=== PATIENT | male | born 1970 | race Caucasian/White ===

== ENCOUNTER 2025-09-15 17:34 | Emergency (ER) | payer SELFPAY ==
[2025-09-15] VITALS (8 sets, daily range): BP systolic 121–168; BP diastolic 70–84; PULSE 76–92; RESP 14–22; TEMP 36.8; O2SAT 94–100; BMI 29.4
--- NOTE | 2025-09-15 17:41 | CT_ITS ---
PROCEDURE: CTA HEAD AND NECK W/ CONTRAST 09/15/2025 REASON FOR EXAM: SYNCOPE, FALL TECHNIQUE: Procedure Code: CTCTA.HDNCK Modality: CT Procedure: CTA HEAD AND NECK W/ CONTRAST Multiplanar Sagittal and Coronal images were obtained. CONTRAST: Isovue 370 VOLUME: 100 mL One or more dose reduction techniques were used (e.g., Automated exposure control, adjustment of the mA and/or kV according to patient size, use of iterative reconstruction technique). RADIATION DOSE SUMMARY: CTDlvol: 23.5 mGy DLP: 640 mGycm COMPARISON: CT scan of the head on 09/15/2025. FINDINGS: Normal bilateral petrous carotid arteries. Calcified atheromatous plaques with mild multifocal stenosis of the right cavernous carotid artery with a normal supraclinoid bifurcation. Calcified atheromatous plaques with mild multifocal stenosis of the left cavernous carotid artery with a normal supraclinoid bifurcation. Normal right A1 segments of the anterior cerebral artery. Normal left A1 segments of the anterior cerebral artery. Normal intact anterior communicating artery (ACOM). Normal bilateral A2 segments of the anterior cerebral arteries. Normal right M1 and M2 segments of the middle cerebral arteries, with a normal M1 bifurcation. Normal left M1 and M2 segments of the middle cerebral arteries, with a normal M1 bifurcation. Normal right posterior communicating artery (PCOM). Normal left posterior communicating artery (PCOM). Normal bilateral vertebral arteries. Normal basilar artery with a normal basilar bifurcation. The visualized bilateral superior cerebellar (SCA) arteries are normal. Normal bilateral P1, P2 and visualized P3 segments of the posterior cerebral arteries. There is no demonstrated aneurysm of the [place] of [place]. There is no major vessel occlusion or hemodynamically significant stenosis. There is no demonstrated abnormality of the visualized brain. Technique: Axial CT angiographic images of the neck. Reformatted coronal and sagittal images. 3D, MIP images. Reconstructed images were reviewed on a different workstation by radiologist. RIGHT CAROTID ARTERIES: Normal right common carotid artery (CCA). 70% stenosis of the right common carotid bulb. 70% stenosis of the origin of the right internal carotid (ICA) artery without a hemodynamically significant stenosis. Normal remaining visualized cervical portion of the right internal carotid artery. Normal origin of the right external carotid artery (ECA). LEFT CAROTID ARTERIES: Normal left common carotid artery (CCA). Normal left common carotid bulb. 20% stenosis of the origin of the left internal carotid (ICA) artery without a hemodynamically significant stenosis. 20% stenosis of the visualized cervical portion of the left internal carotid artery. Normal origin of the left external carotid artery (ECA). VERTEBRAL ARTERIES: Diminutive left vertebral artery, chronic finding. Normal remaining bilateral vertebral artery without a hemodynamically significant stenosis. CT/CTA Head AND Neck W/ Contrast IMPRESSION: Atherosclerosis without high-grade stenosis of the cveeso-ok-Rhgehu or its bran ches. 70% stenosis of the origin of the right internal carotid artery. 20% stenosis of the origin of the left internal carotid artery. Reading Location[facility]
--- NOTE | 2025-09-15 17:41 | CT_ITS ---
PROCEDURE: BRAIN/HEAD WITHOUT CONTRAST 09/15/2025 REASON FOR EXAM: FALL OUT OF TRUCK, SYNCOPE? TECHNIQUE: Procedure Code: CTBR Modality: CT Procedure: BRAIN/HEAD WITHOUT CONTRAST Coronal and Sagittal reconstruction series were provided. One or more dose reduction techniques were used (e.g., Automated exposure control, adjustment of the mA and/or kV according to patient size, use of iterative reconstruction technique. COMPARISON: None available. FINDINGS: There is no extra-axial or intra-axial intracranial hemorrhage. No mass effect or midline shift is seen. The ventricles, sulci, and cisterns are normal in size and shape for the patient's age. There is normal yanes-white matter differentiation. The posterior fossa is grossly unremarkable. The skull is unremarkable. Visualized paranasal sinuses are clear. The mastoid air cells show normal translucency. CT/Brain/Head without Contrast IMPRESSION: No intracranial hemorrhage. No mass effect or midline shift. Reading Location[facility]
--- NOTE | 2025-09-15 17:41 | CT_ITS ---
PROCEDURE: CTA CHST, ABD, PEL W AND/OR WO 09/15/2025 REASON FOR EXAM: ABD PAIN, SYNCOPE TECHNIQUE: Chest, abdomen and pelvis CT with intravenous contrast. Coronal and Sagittal reconstruction series were provided. One or more dose reduction techniques were used (e.g., Automated exposure control, adjustment of the mA and/or kV according to patient size, use of iterative reconstruction technique. PATIENT PREPARATION: Per protocol ORAL CONTRAST TYPE: None. AMOUNT: mL CONTRAST: Not reported by technologist RADIATION DOSE SUMMARY: CTDlvol: 19.6 mGy DLP: 2095 mGycm COMPARISON: None FINDINGS: CT CHEST: Thyroid: Enlarged and heterogeneous with subcentimeter hypodense nodules. Lymph nodes: Unremarkable Mediastinum: Trace soft tissue density in the anterior mediastinum. No cardiomegaly or significant coronary calcification. Motions limits evaluation of the thoracic aorta, without evidence of extravasation. Lungs and Airways: Central airways are clear. Motion slightly limits evaluation. Bibasilar atelectasis. Calcified granuloma in the left lower lobe. Pleura: No effusion or pneumothorax. Bones: No displaced rib fracture. Degenerative changes of the thoracic spine. CT ABDOMEN/PELVIS: Liver: Enlarged and hypoattenuating. Gallbladder: Unremarkable Spleen: Mildly enlarged measuring 14.1 cm craniocaudally Pancreas: Normal size without evidence of mass surrounding inflammation or ductal dilation. Adrenals: Unremarkable Kidneys: No hydronephrosis or hydroureter. No stone. Bladder: Prominent distention Reproductive Organs: Unremarkable Bowel: Small hiatal hernia. No obstruction or inflammation. Mildly prominent rectal stool burden. Appendix: Measures 8 mm in diameter, without periappendiceal inflammatory stranding or calcified appendicolith. Lymph nodes: Unremarkable. Vasculature: Trace aortic atherosclerotic calcifications are noted. Peritoneum / Retroperitoneum: Unremarkable Bones: Degenerative changes of the spine. Sclerotic lesion in the right iliac bone, likely a bone island. Soft tissues: Fat containing umbilical hernia CT/CTA Chst, Abd, Pel W and/or WO IMPRESSION: 1. Trace soft tissue density in the anterior mediastinum is favored to represe nt residual thymic tissue in the absence of an evident aortic injury, though venous mediastinal hemorrhage could appear simila r if trauma was significant. 2. No acute traumatic abnormality in the abdomen or pelvis. 3. Mildly dilated appendix measuring 8 mm, without inflammatory stranding. Co rrelate for clinical evidence of early acute appendicitis. 4. Prominent distention of the urinary bladder, consider catheterization if pa tient is unable to void. 5. Hepatic steatosis and hepatosplenomegaly. 6. Enlarged heterogeneous multinodular thyroid. Consider nonemergent thyroid ultrasound if not previously performed. Reading Location: [id number]
--- NOTE | 2025-09-15 17:43 | EKG12_ITS ---
Test Reason : SYNCOPE Blood Pressure : */* mmHG Vent. Rate : 87 BPM Atrial Rate : 87 BPM P-R Int : 200 ms QRS Dur : 98 ms QT Int : 360 ms P-R-T Axes : 49 37 57 degrees QTcB Int : 433 ms Normal sinus rhythm Normal ECG Confirmed by ELISE ASTORGA, FAN ([id number]), research editor ESTIVEN SANTANA ([id number]) on 09/18/2025 8:21:30 AM Referred By: Confirmed By: FAN OLIVARES MD
[2025-09-15 18:03] LABS: Hematocrit 52.1 % (40-54); Hemoglobin 17.9 g/dL (13.0-16.5); Immature Granulocytes Count 0.060 X10^3/uL (0.0-0.0); Mean Corp Hgb Conc 34.4 g/dL (32-36); Mean Corpuscular Volume 81.8 fL (80-94); Mean Platelet Vol. 10.7 fl (6.2-12.0); NRBC Flagged by Analyzer 0 % (0-5); Platelet Count 214 K/mm3 (150-450); RBC Distribution Width CV 11.8 % (11.6-14.6); RBC Distribution Width SD 34.6 fl (35.1-43.9); Red Blood Count 6.37 M/mm3 (4.6-6.2); White Blood Count 14.0 K/mm3 (4.4-11.0)
[2025-09-15 18:17] LABS: AST(SGOT) 20 U/L (<=37); Alanine Aminotransfer ALT/SGPT 26 U/L (<=46); Albumin, Serum 4.4 g/dL (3.5-5.0); Alkaline Phosphatase 74 U/L (40-129); Anion Gap 15 (5-15); BUN 13 mg/dL (4-19); BUN/Creat Ratio 15.8 RATIO (10-20); Calcium,Total 9.8 mg/dL (7.6-11.0); Carbon Dioxide 24.7 mmol/L (21.0-32.0); Chloride 96 mmol/L (98-108); Estimated Creatinine Clearance 125.15 ml/min (50-250); Globulin 3.5 g/dL (2.2-4.2); Glucose 267 mg/dL (70-99); Lipase 19 U/L (13-75); Potassium 4.1 mmol/L (3.3-5.1); Troponin T High Sensitivity 13 ng/L (<=22)
[2025-09-15 18:17] LABS: SITE Not entered; VBG BASE EXCESS 3 mmol/L (-1.0-3.5); VBG PO2 28 mmHg (25-40); VBG SO2 51 % (50-70); VBG TCO2 30 mmol/L (23-33)
--- NOTE | 2025-09-15 18:20 | ED.RN ---
PT. PROVIDED HIS MOTHER'S PHONE NUMBER FOR ME TO CALL. THERE WAS NO ANSWER AT THIS TIME. [facility] PER PT. REQUEST.
[2025-09-15 18:25] LABS: Mucous, Urine 0 SEEN /hpf (<or=2+)
[2025-09-15 18:31] LABS: Color, Urine Yellow (Yellow); Glucose, Dipstick 1000 mg/dl (Normal); Ketone-Dipstick 5 mg/dl (Negative); Leukocyte Esterase-Dipstick Negative /ul (Negative); Nitrite-Dipstick Negative (Negative); Occult Blood-Urine Negative /ul (Negative); Protein-Dipstick 100 mg/dl (Negative); Specific Gravity, Urine 1.010 (1.002-1.030); Urine Bilirubin Dipstick Negative (Negative)
--- NOTE | 2025-09-15 18:34 | ED.RN ---
PREFORMED W/ PROVIDER Kirk BUSTILLOS, NURSE Elbert SAXENA, AND Danna PATHAK AT BEDSIDE.
--- NOTE | 2025-09-15 18:38 | EX.ED.DYSGE1 ---
HPI History of Present Illness Chief Complaint: Syncope Narrative Narrative: Patient is a 55-year-old male presenting to the emergency department for a headache. Patient has a past medical history of diabetes and HTN. He is a tobacco user. 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 Patient states that he drove from [place] to [place] and was at his final destination and got out of his truck to unload it when he developed a headache. Patient states it was fairly sudden onset in nature. However it did not reach maximum intensity within 1 minute. States that is mainly frontal in nature. He denies any head trauma or falls. States that the headache was bad so he sat down on the ground. Bystanders must have called EMS. He denies any recent fever or chills. Denies any neck or back pain. Denies chest pain or shortness of breath. States he was awake and conscious during the whole episode. Is not on any oral anticoagulation. Denies any visual changes. Denies any numbness or weakness in his arms or legs. Endorses some vague abdominal discomfort with nausea and 1 episode of nonbloody, nonbilious emesis. PFSH PFSH Medical History Type 2 diabetes mellitus Hypertension Heavy smoker Home Medications Medication Instructions Recorded Last Taken Type lisinopril PO HTN 09/15/25 Unknown History metformin PO BID TYPE 2 DIABETES 09/15/25 Unknown History Allergy/AdvReac Type Severity Reaction Status Date / Time No Known Allergies Allergy Verified 09/15/25 17:37 Social History Smoking Status: Unknown if ever smoked ROS ROS ED ROS Narrative see HPI EXAM Physical Exam Narrative Exam Narrative: Vital signs: Reviewed General: Alert and orientedx3. No acute distress. HEENT: Head is normocephalic and atraumatic. No signs of trauma to the head or face including no cephalhematoma, laceration or abrasions. Sinuses nontender, pupils 1-2 mm bilaterally equal round and reactive. Nares are patent. No septal hematoma. Oropharynx and throat exams normal. Dried emesis around mouth. Neck: No midline cervical spinal tenderness to palpation. No step-offs or deformities. Supple without lymphadenopathy nontender. No nuchal rigidity. Cardiovascular: Regular rate and rhythm, no murmurs. No rubs or gallops. Normal S1 and S2. Bilateral radial and DP/PT pulses are symmetric and intact throughout. Respiratory: Clear to auscultation bilaterally. No wheezes, rales, rhonchi Abdominal: Soft and nontender. No abdominal mass felt. No abdominal bruit. Normal bowel sounds. No guarding or rebound. Nonsurgical abdomen Extremities: Extremities are atraumatic and nontender to palpation with normal active range of motion. No tenderness. No bruising. Normal range of motion. Normal sensation. Skin: No rash or redness. Neurological: Cranial nerves II through XII are grossly intact. Normal strength and sensation. Normal cerebellar function The rest of the physical exam is unremarkable Const Vital Signs: 09/15/25 17:36 09/15/25 17:41 09/15/25 18:01 Temperature 98.3 F Temperature Source Oral Pulse Rate 90 92 Respiratory Rate 14 20 H Respiratory Pattern Normal Blood Pressure 168/84 H Blood Pressure Mean 112 Pulse Ox 96 Oxygen Delivery Method Room Air 09/15/25 18:15 09/15/25 18:16 09/15/25 18:30 Temperature Temperature Source Pulse Rate 89 89 88 Respiratory Rate 18 22 H 18 Respiratory Pattern Blood Pressure 166/74 H Blood Pressure Mean 100 Pulse Ox 96 95 Oxygen Delivery Method Room Air 09/15/25 18:45 09/15/25 20:00 09/15/25 22:00 Temperature Temperature Source Pulse Rate 83 86 76 Respiratory Rate 16 18 16 Respiratory Pattern Blood Pressure 160/77 H 121/70 H Blood Pressure Mean 104 87 Pulse Ox 94 100 94 Oxygen Delivery Method Room Air Room Air 09/16/25 00:00 09/16/25 00:26 Temperature 97.9 F Temperature Source Pulse Rate 76 79 Respiratory Rate 18 16 Respiratory Pattern Blood Pressure 129/68 H 124/55 H Blood Pressure Mean 88 78 Pulse Ox 94 99 Oxygen Delivery Method Room Air NIHSS NIHSS Initial: 1a Level of Consciousness: 0 1b LOC Questions (Score 2 if aphasic/stupor): 0 1c LOC Commands (Only score 1st attempt): 0 2 Best Gaze (If aphasic, use reflexive mvmts.): 0 3 Visual: 0 4 Facial Palsy: 0 5 Motor Arm Right (UN = amputation/fusion): 0 5 Motor Arm Left: 0 6 Motor Leg Right: 0 6 Motor Leg Left: 0 7 Limb ataxia (Only + if out of proportion): 0 8 Sensory (Aphasia/stupor=0 or 1, coma=2): 0 9 Best Language: 0 10 Dysarthria (mute, coma=2, intubated=UN): 0 11 Extinction and Inattention (only scored if +): 0 Total Score: 0 MDM MDM MDM Narrative Medical decision making narrative: Patient is a 55-year-old male presenting to the emergency department for headache and possible syncope with fall. Patient was seen and examined. Vitals are stable. Patient resting in bed comfortably no acute distress. NIH of 0 on exam. Patient is sleepy on exam and requires frequent verbal stimulation to awaken and follow commands. Differential includes but is not limited to: Drug use, alcohol use, SAH, meningitis, encephalitis, stroke, aortic dissection, pneumonia, ACS, PE No AMS or fevers, normal neuro exam do not think this is meningitis or encephalitis. Normal neuro exam, do not think stroke. No ripping or tearing chest pain do not think AAA. No SOB, tachycardia, tachypnea or hypoxia, do not think PE. No visual changes and normal neurologic exam, do not think dural venous thrombosis. Patient given fluids and Zofran. CBC with mild leukocytosis of 14 and hemoglobin of 17.9. Labs appear hemoconcentrated. CMP with no significant abnormalities. Does have hyperglycemia at 267, normal anion gap and bicarb. No DKA. Lipase within normal limits. Troponin within normal limits. Urinalysis with glucose and ketones consistent with his diabetes history and hyperglycemia. No evidence of urinary tract infection. EKG shows normal sinus rhythm with no ischemic changes. No ST depression or elevation. No abnormal T wave inversions. No dysrhythmia. VBG with no acidosis, normal PH, PCO2 and Po2. Alcohol level negative. Urine drug screen negative. Elevated lactate of 2.8. No seizure like activity. Likely component of dehydration. CT of the brain with no intracranial hemorrhage, mass effect or midline shift. CTA of the head and neck shows atherosclerosis without high-grade stenosis of the [id number]-Wvysti or its branches. 70% stenosis of the origin of the right internal carotid artery. 20% stenosis of the origin of the left internal carotid artery. CTA chest abdomen pelvis shows trace soft tissue density in the anterior mediastinum is favored to represent residual thymic tissue in the absence of an evident aortic injury, though venous mediastinal hemorrhage could appear similar if trauma was significant. No acute traumatic abnormality in the abdomen or pelvis. Mildly dilated appendix measuring 8 mm, without inflammatory stranding. Correlate for clinical evidence of early acute appendicitis. Prominent distention of the urinary bladder, consider catheterization if patient is unable to void. Hepatic steatosis and hepatosplenomegaly. Enlarged heterogeneous multinodular thyroid. Consider nonemergent thyroid ultrasound if not previously performed. Patient did not have trauma to his chest, clinically correlated likely residual thymic tissue. No RLQ, do not think this is appendicitis. Patient has voided multiple times while here. He was notified of the multi nodular thyroid that he needs a thyroid ultrasound on outpatient for he was given primary care follow-up for this. He was also notified of the 70% stenosis of the right internal carotid artery and instructed to follow-up for this as well. States he is feeling better after fluids and Zofran. Headache is much improved. Likely component of dehydration. Ambulates without difficulty to and from the bathroom. Patient discharged from the Emergency Department. I do not feel that the patient's evaluation reveals any acute reason for admission at this time. I instructed them to either follow-up with their primary care physician or promptly return to the Emergency Department for reevaluation should symptoms worsen or new symptoms develop. I explained what symptoms would indicate the need to return to the emergency department. Shared decision making was used. The patient voiced understanding of the treatment plan and is agreeable with it. Clinical impression: Dehydration Thyroid nodule Headache Elevated lactate level History & Record Review Discussion w/independent historian: Family Lab Data Attestation: I reviewed the patient's lab results. Labs: Laboratory Results - last 24 hr 09/15/25 09/15/25 09/15/25 17:40 18:10 18:15 WBC 14.0 H RBC 6.37 H Hgb 17.9 H Hct 52.1 MCV 81.8 MCH 28.1 MCHC 34.4 RDW Std Deviation 34.6 L RDW Coeff of Alcides 11.8 Plt Count 214 MPV 10.7 Immature Gran % (Auto) 0.400 Neut % (Auto) 72.1 H Lymph % (Auto) 20.4 [place] % (Auto) 5.8 Eos % (Auto) 0.9 Baso % (Auto) 0.4 Absolute Neuts (auto) 10.1 H Absolute Lymphs (auto) 2.86 Nucleated RBC % 0 Sodium 136 Potassium 4.1 Chloride 96 L Carbon Dioxide 24.7 Anion Gap 15 BUN 13 Creatinine 0.82 Estim Creat Clear Calc 125.15 Est GFR (MDRD) Non-Af 104 BUN/Creatinine Ratio 15.8 Glucose 267 H Lactic Acid 2.8 H* Calcium 9.8 Total Bilirubin 0.55 AST 20 ALT 26 Alkaline Phosphatase 74 Troponin T High Sens 13 Troponin T Hi Sens 2 Hr Total Protein 8.0 Albumin 4.4 Globulin 3.5 Albumin/Globulin Ratio 1.3 Lipase 19 Urine Color Yellow Urine Clarity Clear Urine pH 7.0 Ur Specific [place] 1.010 Urine Protein 100 H Urine Glucose (UA) 1000 H Urine Ketones 5 H Urine Occult Blood Negative Urine Nitrite Negative Urine Bilirubin Negative Urine Urobilinogen Normal Ur Leukocyte Esterase Negative Urine RBC 0-5 SEEN Urine WBC 0-5 SEEN Ur Squamous Epith Cells 0-5 SEEN Urine Bacteria 0 SEEN Urine Mucus 0 SEEN Urine Opiates Screen NEGATIVE U Buprenorphine Qual NEGATIVE Ur Oxycodone Screen NEGATIVE Urine Methadone Screen NEGATIVE Urine Fentanyl Screen NEGATIVE Ur Barbiturates Screen NEGATIVE Ur Phencyclidine Scrn NEGATIVE Ur Amphetamines Screen NEGATIVE U Benzodiazepines Scrn NEGATIVE Urine Cocaine Screen NEGATIVE U Cannabinoids Screen NEGATIVE Ethyl Alcohol < 10.1 09/15/25 19:45 WBC RBC Hgb Hct MCV MCH MCHC RDW Std Deviation RDW Coeff of Alcides Plt Count MPV Immature Gran % (Auto) Neut % (Auto) Lymph % (Auto) [place] % (Auto) Eos % (Auto) Baso % (Auto) Absolute Neuts (auto) Absolute Lymphs (auto) Nucleated RBC % Sodium Potassium Chloride Carbon Dioxide Anion Gap BUN Creatinine Estim Creat Clear Calc Est GFR (MDRD) Non-Af BUN/Creatinine Ratio Glucose Lactic Acid Calcium Total Bilirubin AST ALT Alkaline Phosphatase Troponin T High Sens Troponin T Hi Sens 2 Hr 17 Total Protein Albumin Globulin Albumin/Globulin Ratio Lipase Urine Color Urine Clarity Urine pH Ur Specific [place] Urine Protein Urine Glucose (UA) Urine Ketones Urine Occult Blood Urine Nitrite Urine Bilirubin Urine Urobilinogen Ur Leukocyte Esterase Urine RBC Urine WBC Ur Squamous Epith Cells Urine Bacteria Urine Mucus Urine Opiates Screen U Buprenorphine Qual Ur Oxycodone Screen Urine Methadone Screen Urine Fentanyl Screen Ur Barbiturates Screen Ur Phencyclidine Scrn Ur Amphetamines Screen U Benzodiazepines Scrn Urine Cocaine Screen U Cannabinoids Screen Ethyl Alcohol ABG Data ABG results: ABG 09/15/25 18:15 Specimen Type ELLA Sample Site Not entered VBG pH 7.37 VBG pO2 28 VBG HCO3 29 H VBG Total CO2 30 VBG O2 Sat (Calc) 51 VBG Base Excess 3 POC Mix VBG pCO2 Pt Tmp 48.9 O2 Delivery Device Room Air Radiography Diagnostic Testing: Clinical Impression(s) from Imaging Studies Brain CT 09/15/25 17:41 IMPRESSION: No intracranial hemorrhage. No mass effect or midline shift. Reading [facility] Chest/Abdomen/Pelvis CTA 09/15/25 17:41 IMPRESSION: 1. Trace soft tissue density in the anterior mediastinum is favored to represent residual thymic tissue in the absence of an evident aortic injury, though venous mediastinal hemorrhage could appear similar if trauma was significant. 2. No acute traumatic abnormality in the abdomen or pelvis. 3. Mildly dilated appendix measuring 8 mm, without inflammatory stranding. Correlate for clinical evidence of early acute appendicitis. 4. Prominent distention of the urinary bladder, consider catheterization if patient is unable to void. 5. Hepatic steatosis and hepatosplenomegaly. 6. Enlarged heterogeneous multinodular thyroid. Consider nonemergent thyroid ultrasound if not previously performed. Reading Location: [id number] Head/Neck CTA 09/15/25 17:41 IMPRESSION: Atherosclerosis without high-grade stenosis of the eyqgbe-ht-[place] or its branches. 70% stenosis of the origin of the right internal carotid artery. 20% stenosis of the origin of the left internal carotid artery. Reading Location: [place] [id number] Discharge Plan Triage Chief Complaint: Syncope ED Provider: Martha Costa Dx/Rx/DC Orders Clinical Impression: Headache, Thyroid nodule, Dehydration, Elevated lactic acid level Instructions: Self-Care for Headaches, Dehydration Prescriptions: No Action metformin PO BID lisinopril PO Primary Care Provider: Care Physician,No Primary Referrals: Allan Zamora MD [Med Staff - Active Staff, Family Practice] - As soon as possible Care Physician,No Primary [Primary Care Provider, Medical] Activity Restrictions/Additional Instructions: Drink lots of fluids, you are dehydrated. Your evaluation in the Emergency Department did not reveal any acute reason for admission. However, I want to emphasize that you may be early in the course of a disease process or illness even if it is not present. For this reason you should follow-up within 24 hours for reevaluation with either your primary care physician or if necessary back here in the Emergency Department. You should return to the Emergency Department immediately if your symptoms worsen or new symptoms develop. You need to follow up with the primary care doctor below and have an outpatient thyroid ultrasound done for the findings as below: Enlarged heterogeneous multinodular thyroid. Consider nonemergent thyroid ultrasound if not previously performed. You also had CTA imaging that showed 70% stenosis of your right internal carotid artery which you can follow up outpatient as well for. Print Language: Romansh Disposition Disposition: Home, Self Care Discharge Date/Time: 09/16/25 00:35
[2025-09-15] MEDS: 0.9% Normal Saline (1000mL) 1,000 ML 1000 ML IV (18:42)
--- NOTE | 2025-09-15 18:48 | ED.RN ---
LAB CALLED FOR UNRECIEVED LACTIC. RESPONSE "IT IS DOWN IN CHEMISTRY"
[2025-09-15 18:50] LABS: Barbiturate Urine NEGATIVE (< 200 ng/mL); Benzodiazepine Urine NEGATIVE (< 200 ng/mL); PCP Urine NEGATIVE (< 25 ng/mL); THC Urine NEGATIVE (< 50 ng/mL)
[2025-09-15 18:53] LABS: Alcohol, Blood (Medical)-Serum < 10.1 mg/dL (<=10.0)
[2025-09-15 18:54] LABS: Red Blood Cells-Urine 0-5 SEEN /hpf (0-5); Squamous Epithelial Cells - UA 0-5 SEEN /hpf (0-5)
[2025-09-15 20:41] LABS: Troponin T High Sens 2 HR 17 ng/L (<=22)
[2025-09-15 22:50] LABS: Reflex Lactate? Y
[2025-09-16] VITALS: BP 129/68; PULSE 76; RESP 18; O2SAT 94
[2025-09-16 00:26] VITALS: BP 124/55; PULSE 79; RESP 16; TEMP 36.6; O2SAT 99
== END 2025-09-16 00:35 | disposition home or self-care (01) ==
PROVIDERS: Emergency Provider Student in an Organized Health Care Education/Training Program; Visit Provider Student in an Organized Health Care Education/Training Program
DX: R51.9 Headache, unspecified (principal); E11.9 Type 2 diabetes mellitus without complications; E86.0 Dehydration; I10 Essential (primary) hypertension; R29.700 NIHSS score 0; E04.9 Nontoxic goiter, unspecified; R55 Syncope and collapse; Z79.899 Other long term (current) drug therapy; D72.829 Elevated white blood cell count, unspecified; R74.02 Elevation of levels of lactic acid dehydrogenase [LDH]; I65.21 Occlusion and stenosis of right carotid artery
CPT/HCPCS: 70450; 70496; 70498; 71275; 74174; 80053; 80307; 81001; 82077; 82803; 83605; 83690; 84484; 85025; 93005; 96361; 96374; 99285; Q9967; A4216; J2405